=== PATIENT | male | born 1950 | race Caucasian/White ===

== ENCOUNTER 2018-09-29 13:24 | Outpatient (CLI) | payer MEDICARE, MEDICAID ==
[~2018-09-29] VITALS: Ht 167.6 cm; Wt 72.6 kg
[2018-09-29 13:30] VITALS: BP 123/71
--- NOTE | 2018-09-30 16:18 | GI Initial Consult Note ---
History of Present Illness General Date patient seen: Sep 29, 2018 Time patient seen: 16:06 Referring physician: KELLI Reason for Consultation: DYSPHAGIA Present Illness HPI 68 year old male patient referred today for evaluation of dysphagia and colonoscopy. Per patient, stated he had a ENT consulted in which they did see any notable findings. He presents with c/o of dysphagia and GERD. His last colonoscopy has been greater tahn 5 years ago. Denies any unintentional weight loss or changes in dietary habits. No signs of abuse or neglect. Patient is not fall risk. The patient is unable to recall any of his medications nor does he have a list on him. Allergies: Coded Allergies: No Known Allergies (Unverified , 09/29/18) Patient History PMH Narrative DM Past Surgical History: Prostatectomy Pertinent Family History: none Social History: Denies: smoking, alcohol use, drug use, other Social History Narrative quit tobacco 10 years ago Review of Systems All Other Systems: negative except mentioned in HPI Physical Exam Vital Signs Date Time Temp Pulse Resp B/P (MAP) Pulse Ox O2 Delivery O2 Flow Rate FiO2 09/29/18 13:30 99.2 71 123/71 96 Sp02 EP Interpretation: reviewed, normal General Appearance: well appearing, no apparent distress, alert Head: normocephalic EENT: PERRL/EOMI, normal ENT inspection Neck: supple Respiratory: normal breath sounds, no respiratory distress Cardiovascular: normal rate Gastrointestinal: normal inspection, non tender, soft, normal bowel sounds, non -distended Rectal: deferred Genitourinary: deferred Musculoskeletal: normal inspection, back normal Neurologic: normal inspection, alert, oriented x3, responsive Psychiatric: normal inspection, judgement/insight normal, memory normal Skin: normal inspection, normal color, no rash, warm/dry, palpation normal, well hydrated Lymphatic: normal inspection, no adenopathy GI: Plan Problems: (1) Dysphagia (2) Colonoscopy planned (3) Diabetes mellitus Plan EGD/colonoscopy scheduled 10/14/18. - CLD & (Nulytely/Suprep/Movi-Prep) prep instructions given and acknowledged by patient. - NPO @ MI day prior procedure explained. will follow with additional recs post procedure. Discussed with Dr. Justice. Thank you for this patient referral, we will follow. The patient was seen and examined at bedside and all new and available data was reviewed in the patients chart. I agree with the above findings, impression and plan. (Patient seen earlier today. Signature stamp does not reflect patient encounter time.). - MD Lou MartínezSandhills [facility] Centeroi GUARD CHIEF Sep 30, 2018 16:18
== END 2018-09-29 13:54 | disposition home or self-care (01) ==
LOC: PAN 13:24
DX: R13.10 Dysphagia, unspecified (principal); E11.9 Type 2 diabetes mellitus without complications; K21.9 Gastro-esophageal reflux disease without esophagitis
CPT/HCPCS: 99202

== ENCOUNTER 2019-04-20 14:29 | Outpatient (CLI) | payer MEDICARE, MEDICAID ==
[~2019-04-20 14:29] MED LIST: ASPIR 8181 MG ORAL; BENAZEPRIL HCL20 MG ORAL; GABAPENTIN300 MG ORAL; METFORMIN HCL500 M1 ORAL; RELAFEN500 MG PO; VITAMIN B6 PO; VITAMIN D22000 UNIT PO
[2019-04-20 14:50] VITALS: BP 118/91
--- NOTE | 2019-04-20 15:24 | General Progress Note ---
Assessment/Plan Problem List: (1) Colon polyps ICD Codes: K63.5 - Polyp of colon SNOMED: 31121726 (2) Diverticulosis ICD Codes: K57.90 - Diverticulosis of intestine, part unspecified, without perforation or abscess without bleeding SNOMED: 773579292 (3) Gastritis ICD Codes: K29.70 - Gastritis, unspecified, without bleeding SNOMED: 2978211 (4) Diabetes mellitus ICD Codes: E11.9 - Type 2 diabetes mellitus without complications SNOMED: 20632713 Assessment/Plan: treat for HP RTC in 3 months repeat colonoscopy in 3 months Subjective ROS Limited/Unobtainable: Yes Allergies: Coded Allergies: No Known Allergies (Unverified , 10/14/18) Objective General Appearance: alert EENT: normal ENT inspection Neck: supple Cardiovascular: normal rate Respiratory/Chest: lungs clear Abdomen: normal bowel sounds, non tender, soft Extremities: non-tender Edin Justice MD April 20, 2019 15:24
== END 2019-04-20 15:50 | disposition home or self-care (01) ==
LOC: PAN 14:29
DX: K63.5 Polyp of colon (principal); K57.90 Diverticulosis of intestine, part unspecified, without perforation or abscess without bleeding; K29.70 Gastritis, unspecified, without bleeding; E11.9 Type 2 diabetes mellitus without complications
CPT/HCPCS: 99212